=== PATIENT | female | born 1965 ===

== ENCOUNTER 2017-02-08 08:18 | Emergency (ER) | payer OTHER ==
[2017-02-08 08:21] VITALS: BMI 31.4
[2017-02-08 08:22] VITALS: BP 125/81; PULSE 78; RESP 18; TEMP 98.8; O2SAT 99
[2017-02-08] MEDS ORDERED: Sodium Chloride 0.9% 1,000 ML IV STA (08:38)
--- NOTE | 2017-02-08 08:40 | ED PDOC ---
Syncope/Near Syncope/Dizzyness Time Seen by Provider: 02/08/17 08:31 Chief Complaint (Nursing): Dizziness/Lightheaded Chief Complaint (Provider): dizziness History Per: Patient History/Exam Limitations: no limitations Onset/Duration Of Symptoms: Days (x 7) Current Symptoms Are (Timing): Still Present Fall Associated With With Symptoms: No Additional Complaint(s): Nunu Martinez is a 51 year old female, with no previous medical history, who presents to the ED with complaints of dizziness with associated nausea which has been progressively worsening for the past week. Patient denies any vomiting , headache, chest pain, palpitations or abdominal pain. Patient reports symptoms are worse with movement but improve when laying still. PMD: none provided Past Medical History Reviewed: Historical Data, Nursing Documentation, Vital Signs Vital Signs: Last Vital Signs Temp 98.8 F 02/08/17 08:21 Pulse 78 02/08/17 08:21 Resp 18 02/08/17 08:21 BP 125/81 02/08/17 08:21 Pulse Ox 99 02/08/17 08:21 - Medical History PMH: Hypercholesterolemia Denies: Chronic Kidney Disease - Family History Family History: States: Unknown Family Hx - Home Medications Home Medications: Ambulatory Orders Medication Instructions Recorded Meclizine [Meclizine*] 25 mg PO Q8 #15 tab 02/08/17 - Allergies Allergies/Adverse Reactions: Allergies Allergy/AdvReac Type Severity Reaction Status Date / Time No Known Allergies Allergy Verified 04/11/16 11:25 Review of Systems ROS Statement: Except As Marked, All Systems Reviewed And Found Negative Cardiovascular: Negative for: Chest Pain, Palpitations Gastrointestinal: Positive for: Nausea. Negative for: Vomiting, Abdominal Pain Neurological: Positive for: Dizziness. Negative for: Headache Physical Exam - Reviewed Nursing Documentation Reviewed: Yes Vital Signs Reviewed: Yes - Physical Exam Appears: Positive for: Well, Non-toxic, No Acute Distress Head Exam: Positive for: ATRAUMATIC, NORMAL INSPECTION, NORMOCEPHALIC Skin: Positive for: Normal Color, Warm, DRY Eye Exam: Positive for: EOMI, Normal appearance, PERRL ENT: Positive for: Normal ENT Inspection Neck: Positive for: Normal, Painless ROM Cardiovascular/Chest: Positive for: Regular Rate, Rhythm Respiratory: Positive for: CNT, Normal Breath Sounds Gastrointestinal/Abdominal: Positive for: Normal Exam, Bowel Sounds, Soft. Negative for: Tenderness Back: Positive for: Normal Inspection Extremity: Positive for: Normal ROM Neurologic/Psych: Positive for: Alert, Oriented. Negative for: Motor/Sensory Deficits - Laboratory Results Result Diagrams: 02/08/17 09:11 02/08/17 09:11 - ECG O2 Sat by Pulse Oximetry: 99 (RA) Pulse Ox Interpretation: Normal Medical Decision Making Medical Decision Making: Initial Impression: Dizziness Initial Plan: * EKG * labs * urine * antivert * IV NS 1,000 ml at 100 ml/hr * zofran * reevaluation Scribe Attestation: Documented by Lore Ochoa, acting as a scribe for Naeem Fry MD. Provider Scribe Attestation: All medical record entries made by the Scribe were at my direction and personally dictated by me. I have reviewed the chart and agree that the record accurately reflects my personal performance of the history, physical exam, medical decision making, and the department course for this patient. I have also personally directed, reviewed, and agree with the discharge instructions and disposition. Disposition - Clinical Impression Clinical Impression: Vertigo - Patient ED Disposition Is Patient to be Admitted: No Counseled Patient/Family Regarding: Studies Performed, Diagnosis, Need For Followup, Rx Given - Disposition Referrals: [facility] [Outside] Disposition: Routine/Home Disposition Time: 10:05 Condition: FAIR Prescriptions: Meclizine [Meclizine*] 25 mg PO Q8 #15 tab Instructions: Vertigo (ED) Print Language: ROMANIAN
[2017-02-08 09:21] LABS: BASO # 0.1 K/uL (0.0-0.2); BASO % 1.4 % (0.0-2.0); EOS # 0.3 K/uL (0.0-0.7); EOS % 4.7 % (0.0-4.0); HEMATOCRIT 45.4 % (34.0-47.0); LYMPH # 1.8 K/uL (1.0-4.3); MEAN CORPUSCULAR HEMOGLOBIN 29.7 pg (27.0-31.0); MEAN CORPUSCULAR HGB CONC 33.4 g/dL (33.0-37.0); MEAN PLATELET VOLUME 7.8 fl (7.2-11.7); MONO # 0.5 K/uL (0.0-0.8); NEUT # 3.4 K/uL (1.8-7.0); NEUT % 56.9 % (50.0-75.0); NRBC % 0.1 % (0.0-0.0); RED CELL DISTRIBUTION WIDTH 14.2 % (11.5-14.5); WHITE BLOOD COUNT 6.1 K/uL (4.8-10.8)
[2017-02-08 09:33] LABS: ALB/GLOB RATIO 1.4 (1.0-2.1); ALKALINE PHOSPHATASE 71 U/L (38-126); ALT/SGPT 55 U/L (9-52); AST/SGOT 39 U/L (14-36); BILIRUBIN,TOTAL 0.6 mg/dl (0.2-1.3); BLOOD UREA NITROGEN 15 mg/dl (7-17); CALCIUM 9.8 mg/dL (8.4-10.2); CARBON DIOXIDE 28 mmol/L (22-30); CHLORIDE 104 mmol/L (98-107); GFR AFRICAN-AMERICAN > 60; GLUCOSE,RANDOM 104 mg/dL (65-105); POTASSIUM 4.3 MMOL/L (3.6-5.0); SODIUM 141 mmol/l (132-148); TOTAL PROTEIN 7.7 G/DL (6.3-8.2)
--- NOTE | 2017-02-08 11:29 | CARD ---
APPROVED REPORT EKG Measurement Heart [id number] <Conclusion> Normal sinus rhythm Normal ECG
== END 2017-02-08 10:25 | disposition home or self-care (01) ==
LOC: H.ER 08:18
DX: R42 Dizziness and giddiness (principal); E78.00 Pure hypercholesterolemia, unspecified

== ENCOUNTER 2017-10-04 16:40 | Emergency (ER) | payer SELFPAY ==
[2017-10-04 16:41] VITALS: BMI 31.4
[2017-10-04 16:57] VITALS: RESP 18
--- NOTE | 2017-10-04 18:24 | ED PDOC ---
Lower Extremity Pain/Injury Time Seen by Provider: 10/04/17 16:51 Chief Complaint (Nursing): Lower Extremity Problem/Injury History Per: Patient, Lathe Tender History/Exam Limitations: no limitations Onset/Duration Of Symptoms: Days (x 1) Current Symptoms Are (Timing): Still Present Additional Complaint(s): Nunu is a 52 year old female who presents to the emergency department for right knee pain. Patient states she fell while trying to get out of the bathtub in the morning. Patient states she has a "pre-diabetes list" and takes metformin 500 mg. Denies taking medications for pain. PMD: Keny Parker Past Medical History Reviewed: Historical Data, Nursing Documentation, Vital Signs Vital Signs: Last Vital Signs Temp 100.1 F H 10/04/17 16:52 Pulse 99 H 10/04/17 16:52 Resp 18 10/04/17 16:52 BP 146/87 10/04/17 16:52 Pulse Ox 100 10/04/17 16:52 - Medical History PMH: Hypercholesterolemia Denies: Chronic Kidney Disease - Surgical History Surgical History: No Surg Hx - Family History Family History: States: Unknown Family Hx - Social History Current smoker - smoking cessation education provided: No Alcohol: None Drugs: Denies - Home Medications Home Medications: Ambulatory Orders Medication Instructions Recorded Meclizine [Meclizine*] 25 mg PO Q8 #15 tab 02/08/17 Ibuprofen [Motrin Tab] 800 mg PO Q6H PRN #20 tab 10/04/17 - Allergies Allergies/Adverse Reactions: Allergies Allergy/AdvReac Type Severity Reaction Status Date / Time No Known Allergies Allergy Verified 04/11/16 11:25 Review of Systems ROS Statement: Except As Marked, All Systems Reviewed And Found Negative Musculoskeletal: Positive for: Other (Right Knee Pain) Physical Exam - Reviewed Nursing Documentation Reviewed: Yes Vital Signs Reviewed: Yes - Physical Exam Appears: Positive for: Well, Non-toxic Head Exam: Positive for: ATRAUMATIC, NORMAL INSPECTION, NORMOCEPHALIC Skin: Positive for: Normal Color, Warm, Dry Eye Exam: Positive for: Normal appearance ENT: Positive for: Normal ENT Inspection Neck: Positive for: Normal Cardiovascular/Chest: Positive for: Regular Rate, Rhythm Respiratory: Negative for: Accessory Muscle Use, Respiratory Distress Extremity: Positive for: Tenderness (Generlized), Deformity (Bony). Negative for: Pedal Edema, Swelling Neurologic/Psych: Positive for: Alert, Oriented - ECG O2 Sat by Pulse Oximetry: 100 (RA) Pulse Ox Interpretation: Normal Medical Decision Making Medical Decision Making: Time: 18:19 Plan: - Right Knee X-Ray - Motrin Tab Scribe Attestation: Documented by Jacobo Kiser, acting as a scribe for Drea Santizo PA-C Provider Scribe Attestation: All medical record entries made by the Scribe were at my direction and personally dictated by me. I have reviewed the chart and agree that the record accurately reflects my personal performance of the history, physical exam, medical decision making, and the department course for this patient. I have also personally directed, reviewed, and agree with the discharge instructions and disposition. Disposition - Clinical Impression Clinical Impression: Knee pain - Patient ED Disposition Is Patient to be Admitted: No Counseled Patient/Family Regarding: Diagnosis, Need For Followup, Rx Given - Disposition Referrals: [facility] [Outside] Disposition: Routine/Home Disposition Time: 20:09 Condition: GOOD Prescriptions: Ibuprofen [Motrin Tab] 800 mg PO Q6H PRN #20 tab PRN Reason: Pain Instructions: Knee Pain (ED) Forms: [employer] (Welsh), [facility] ED School/Work Excuse Print Language: POLISH
[2017-10-04 20:18] VITALS: BP 130/78; PULSE 78; TEMP 98.1; O2SAT 99
--- NOTE | 2017-10-05 09:41 | RAD ---
PROCEDURE: Right Knee Radiographs. HISTORY: knee pain, twisted COMPARISON: None. FINDINGS: BONES: Three views of the right knee were performed for pain and trauma. Mild degenerative changes are seen. No fracture is noted. No tibial plateau depression is seen. No focal osteochondral defect is noted. No joint effusion is seen. No loose body is noted. Minimal prepatellar edema is noted. No periosteal reaction is seen. There is minor lateral patellar tilting seen on the sunrise view. JOINTS: See above JOINT EFFUSION: See above OTHER FINDINGS: None. IMPRESSION: No fracture.
== END 2017-10-04 20:18 | disposition home or self-care (01) ==
LOC: H.ER 16:40
DX: M25.561 Pain in right knee (principal); W19.XXXA Unspecified fall, initial encounter; Y92.89 Other specified places as the place of occurrence of the external cause; E78.00 Pure hypercholesterolemia, unspecified

== ENCOUNTER 2018-03-31 08:16 | Inpatient (IN) | payer SELFPAY ==
[2018-03-31 08:23] VITALS: BMI 34.7
--- NOTE | 2018-03-31 09:25 | ED PDOC ---
HPI: Abdomen Time Seen by Provider: 03/31/18 09:06 Chief Complaint (Nursing): Abdominal Pain Chief Complaint (Provider): Abdominal Painn History Per: Patient History/Exam Limitations: no limitations Onset/Duration Of Symptoms: Days (1 week) Current Symptoms Are (Timing): Still Present Location Of Pain/Discomfort: LLQ Quality Of Discomfort: "Pain" Associated Symptoms: Chills, Nausea. denies: Fever, Vomiting, Diarrhea Additional Complaint(s): 53 year old female with a PMHx of diabetes mellitus presents to the ED complaining of left lower quadrant abdominal pain onset for 1 week. Reports the abdominal pain is associated with nausea. Patient had chills but no fever last night. Denies bloody stool, vomiting or diarrhea. PMD: No Family Provider Past Medical History Reviewed: Historical Data, Nursing Documentation, Vital Signs Vital Signs: Last Vital Signs Temp 98.5 F 03/31/18 08:23 Pulse 91 H 03/31/18 08:23 Resp 20 03/31/18 08:23 BP 115/81 03/31/18 08:23 Pulse Ox 97 03/31/18 09:26 - Medical History PMH: Diabetes, Hypercholesterolemia Denies: Chronic Kidney Disease - Family History Family History: States: Unknown Family Hx - Allergies Allergies/Adverse Reactions: Allergies Allergy/AdvReac Type Severity Reaction Status Date / Time No Known Allergies Allergy Verified 03/31/18 08:38 Review of Systems ROS Statement: Except As Marked, All Systems Reviewed And Found Negative Constitutional: Positive for: Chills. Negative for: Fever Gastrointestinal: Positive for: Nausea, Abdominal Pain (LLQ). Negative for: Vomiting, Diarrhea, Other (bloody stool) Physical Exam - Reviewed Nursing Documentation Reviewed: Yes Vital Signs Reviewed: Yes - Physical Exam Appears: Positive for: Non-toxic, No Acute Distress Head Exam: Positive for: ATRAUMATIC, NORMAL INSPECTION, NORMOCEPHALIC Skin: Positive for: Normal Color, Warm, Dry Cardiovascular/Chest: Positive for: Regular Rate, Rhythm. Negative for: Murmur Respiratory: Positive for: Normal Breath Sounds. Negative for: Decreased Breath Sounds, Wheezing, Respiratory Distress Gastrointestinal/Abdominal: Positive for: Tenderness (all 4 quadrant but greater on LLQ). Negative for: Guarding, Rebound Back: Positive for: Normal Inspection. Negative for: L CVA Tenderness, R CVA Tenderness Extremity: Positive for: Normal ROM. Negative for: Tenderness, Pedal Edema, Deformity Neurologic/Psych: Positive for: Alert, Oriented (x3) - Laboratory Results Result Diagrams: 03/31/18 09:55 03/31/18 09:55 - ECG O2 Sat by Pulse Oximetry: 97 (RA) Pulse Ox Interpretation: Normal Medical Decision Making Medical Decision Making: Time: 913 Initial Impression: left lower quadrant pain Initial Plan: --VBG Shock Panel --Ad & Pelvis IV Contrast Only CT --CMP --ED Urine dipstick --CBC w/ Differential --Blood Culture --Urine Culture --Reevaluation Scribe Attestation: Documented by Carolina Cameron, acting as a scribe for Naeem Fry MD Provider Scribe Attestation: All medical record entries made by the Scribe were at my direction and personally dictated by me. I have reviewed the chart and agree that the record accurately reflects my personal performance of the history, physical exam, medical decision making, and the department course for this patient. I have also personally directed, reviewed, and agree with the discharge instructions and disposition. Disposition - Clinical Impression Clinical Impression: Diverticulitis - Patient ED Disposition Is Patient to be Admitted: Yes - Disposition Disposition Time: 15:44 Condition: FAIR Forms: [employer] (Citizen [place] - Pt Status Changed To: Hospital Disposition Of: Observation - POA Present On Arrival: None
[2018-03-31 10:06] LABS: BASO # 0.1 K/uL (0.0-0.2); BASO % 0.6 % (0.0-2.0); EOS # 0.5 K/uL (0.0-0.7); EOS % 4.4 % (0.0-4.0); LYMPH # 2.4 K/uL (1.0-4.3); LYMPH % 20.6 % (20.0-40.0); MEAN CORPUSCULAR HEMOGLOBIN 28.2 pg (27.0-31.0); MEAN CORPUSCULAR HGB CONC 32.5 g/dL (33.0-37.0); MEAN PLATELET VOLUME 8.4 fl (7.2-11.7); MONO # 0.8 K/uL (0.0-0.8); MONO % 6.7 % (0.0-10.0); NEUT # 7.7 K/uL (1.8-7.0); NEUT % 67.7 % (50.0-75.0); NRBC % 0.1 % (0.0-0.0); RBC 4.95 Mil/uL (3.80-5.20); RED CELL DISTRIBUTION WIDTH 14.2 % (11.5-14.5); WHITE BLOOD COUNT 11.5 K/uL (4.8-10.8)
[2018-03-31 10:12] LABS: CALCIUM 9.7 mg/dL (8.4-10.2); GFR AFRICAN-AMERICAN > 60; GFR NON-AFRICAN AMERICAN > 60
[2018-03-31 10:13] LABS: ALB/GLOB RATIO 1.1 (1.0-2.1); ALBUMIN 4.4 g/dL (3.5-5.0); ALT/SGPT 32 U/L (9-52); AST/SGOT 45 U/L (14-36); BLOOD UREA NITROGEN 18 mg/dl (7-17)
[2018-03-31] MEDS ORDERED: Iohexol 300 100 ML IJ ONE (10:22)
[2018-03-31] MEDS ORDERED: Sodium Chloride 0.9% 50 ML IV ONE (10:23)
[2018-03-31] MEDS ORDERED: Iohexol 240 (50 ml) PO ONE (11:11)
[2018-03-31 11:22] LABS: VENOUS BLOOD GAS BASE EXCESS 2.5 mmol/L (0.0-2.0); VENOUS BLOOD GAS PCO2 37 mmHg (40-60); VENOUS BLOOD GAS PO2 55 mm/Hg (30-55); VENOUS BLOOD PH 7.46 (7.32-7.43)
[2018-03-31] MEDS ORDERED: metroNIDAZOLE 500mg/100ml NS 100 ML IVPB STA (15:41)
[2018-03-31] MEDS ORDERED: Ciprofloxacin 400mg/200ml D5W 400 MG/200 ML BAG IVPB STA (15:41)
[2018-03-31] MEDS ORDERED: Sodium Chloride 0.9% 1,000 ML IV STA (15:45)
[2018-03-31] MEDS ORDERED: Glucagon Recombinant 1 mg Inj IM PRN (16:13)
[2018-03-31] MEDS ORDERED: Dextrose 50% SYRINGE Inj (50 ml) IV PRN (16:13)
--- NOTE | 2018-03-31 16:13 | CP.PCM.HP ---
History of Present Illness - History of Present Illness History of Present Illness: "donavan been having nausea and stomach pain for 6 days" 53 y/o female, with hx of preDM, HLD, morbid obesity, presents for evaluation of worsening stomach pain. Pain started 6 days ago without a triggering event. She reports it was 3/10 and mild nausea but as the week progressed it worsening. She had loss of appetite and 8/10 abdominal pain. Pain is diffuse, without a specific area, nonradiating, alleviated with rest, exacerbated with activity that increases intrabdominal pressure. She reports a similar episode in 2014 when she admitted for diverticulitis. She reports subjective fevers but denies any diarrhea. She had 1 episode of NBNB emesis yesterday that was primarily stomach contents. She attempted to take OTC pain meds (tylenol/advil) without improvement so she came to the ED for evaluation. Denies chills, CP/SOB/ Palpitations/CAMACHO, D/C, urinary symptoms, back pain, sick contacts, changes in diet. ROS: 12 systems reviewed, as per HPI PMD: [facility] last visit 02/2018 PMHx: pre-diabetes, HLD, obesity Meds: Metformin 500mg BID, Flonase PsurgHx: x1 CATERERS HELPER: irregular, perimenapausal ALL: NKDA FamilyHx: mother breast CA, father DM SocialHx: denies etoh, drugs, tobacco abuse Next of kin: friend Flor (as per demographics) Code Status: full code ED course: vitals: stable CBC: mild leukocytosis CMP: wnl Abd/pelvic CT: official report pending Tx: IV fluids, Cipro/flagyl, NPO admitted to med/surg Present on Admission - Present on Admission Any Indicators Present on Admission: No History of DVT/PE: No History of Uncontrolled Diabetes: No Urinary Catheter: No Decubitus Ulcer Present: No Review of Systems - Review of Systems All systems: reviewed and no additional remarkable complaints except Past Patient History - Infectious Disease Hx of Infectious Diseases: None - Past Medical History & Family History Past Medical History?: No Past Family History: Reviewed and not pertinent - Past Social History Smoking Status: Never Smoked Chewing Tobacco Use: No Cigar Use: No Alcohol: None Drugs: Denies Home Situation {Lives}: Alone - CARDIAC Hx Hypercholesterolemia: Yes - PULMONARY Hx Respiratory Disorders: No - NEUROLOGICAL Hx Neurological Disorder: No - HEENT Hx HEENT Problems: No - RENAL Hx Chronic Kidney Disease: No - ENDOCRINE/METABOLIC Hx Endocrine Disorders: Yes Hx Diabetes Mellitus Type 2: Yes - HEMATOLOGICAL/ONCOLOGICAL Hx Blood Disorders: No - INTEGUMENTARY Hx Dermatological Problems: No - MUSCULOSKELETAL/RHEUMATOLOGICAL Hx Musculoskeletal Disorders: No - GASTROINTESTINAL Hx Gastrointestinal Disorders: No - GENITOURINARY/GYNECOLOGICAL Hx Genitourinary Disorders: No - PSYCHIATRIC Hx Psychophysiologic Disorder: No Hx Emotional Abuse: No Hx Physical Abuse: No Hx Substance Use: No - SURGICAL HISTORY Hx Surgeries: Yes Hx Section: Yes - ANESTHESIA Hx Anesthesia: Yes Hx Anesthesia Reactions: No Hx Malignant Hyperthermia: No Meds Allergies/Adverse Reactions: Allergies Allergy/AdvReac Type Severity Reaction Status Date / Time No Known Allergies Allergy Verified 03/31/18 08:38 Physical Exam - Constitutional Appears: Well, Non-toxic, No Acute Distress - Head Exam Head Exam: ATRAUMATIC, NORMAL INSPECTION, NORMOCEPHALIC - Eye Exam Eye Exam: EOMI, Normal appearance, PERRL. absent: Conjunctival injection, Scleral icterus Pupil Exam: NORMAL ACCOMODATION, PERRL - ENT Exam ENT Exam: Mucous Membranes Moist, Normal Exam - Neck Exam Neck exam: Positive for: Normal Inspection - Respiratory Exam Respiratory Exam: Clear to Auscultation Bilateral, NORMAL BREATHING PATTERN. absent: Accessory Muscle Use, Decreased Breath Sounds, Rhonchi, Wheezes, Respiratory Distress - Cardiovascular Exam Cardiovascular Exam: REGULAR RHYTHM, RRR, +S1, +S2. absent: Tachycardia, JVD, Systolic Murmur - GI/Abdominal Exam GI & Abdominal Exam: Normal Bowel Sounds, Soft, Tenderness (diffuse, mild, more prounounced in LLQ ). absent: Distended, Firm, Guarding, Organomegaly, Rebound , Rigid - Extremities Exam Extremities exam: Positive for: normal capillary refill, normal inspection, pedal pulses present. Negative for: calf tenderness - Back Exam Back exam: absent: CVA tenderness (L), CVA tenderness (R) - Neurological Exam Neurological exam: Alert, CN II-XII Intact, Normal Gait, Oriented x3, Reflexes Normal - Psychiatric Exam Psychiatric exam: Normal Affect, Normal Mood - Skin Skin Exam: Dry, Warm Results - Vital Signs Recent Vital Signs: Last Vital Signs Temp 98.5 F 03/31/18 08:23 Pulse 91 H 03/31/18 08:23 Resp 20 03/31/18 08:23 BP 115/81 03/31/18 08:23 Pulse Ox 97 03/31/18 15:44 - Labs Result Diagrams: 03/31/18 09:55 03/31/18 09:55 Labs: Laboratory Results - last 24 hr 03/31/18 03/31/18 03/31/18 09:55 09:55 11:15 WBC 11.5 H RBC 4.95 Hgb 14.0 Hct 43.1 MCV 87.0 D MCH 28.2 MCHC 32.5 L RDW 14.2 Plt Count 359 MPV 8.4 Neut % (Auto) 67.7 Lymph % (Auto) 20.6 Sunflower % (Auto) 6.7 Eos % (Auto) 4.4 H Baso % (Auto) 0.6 Neut # (Auto) 7.7 H Lymph # (Auto) 2.4 Sunflower # (Auto) 0.8 Eos # (Auto) 0.5 Baso # (Auto) 0.1 pO2 55 VBG pH 7.46 H VBG pCO2 37 L VBG HCO3 26.7 VBG Total CO2 27.4 VBG O2 Sat (Calc) 95.3 H VBG Base Excess 2.5 H VBG Potassium 4.6 Glucose 102 Lactate 1.7 FiO2 21.0 Sodium 137 133.0 Potassium 4.8 Chloride 102 104.0 Carbon Dioxide 24 Anion Gap 16 BUN 18 H Creatinine 0.6 L Est GFR ( Amer) > 60 Est GFR (Non-Af Amer) > 60 Random Glucose 96 Calcium 9.7 Total Bilirubin 1.0 AST 45 H D ALT 32 Alkaline Phosphatase 87 Total Protein 8.5 H Albumin 4.4 Globulin 4.1 H Albumin/Globulin Ratio 1.1 Venous Blood Potassium 4.6 Assessment & Plan - Assessment and Plan (Free Text) Assessment: 53 y/o female with hx of pre-diabetes, HLD, admitted for acute diverticulitis Plan: 1) Acute Diverticulitis -NPO -Cipro/flagyl as ordered -IV fluids with LR @ 100mls/hr -Zofran PRN nausea -pain control as ordered -monitor vitals -follow up AM CBC/BMP 2) Leukocytosis -likely 2/2 to diverticulitis -treatment as above -follow up AM labs 3) DVT Ppx -ambulation -scds -lovenox 40mg SC QD 4) Code Status -full code
--- NOTE | 2018-03-31 16:24 | CT ---
PROCEDURE: CT Abdomen and Pelvis with contrast HISTORY: abd pain r/o divertics COMPARISON: Abdomen and pelvis CT examination 08/27/2015. TECHNIQUE: Contrast dose: None Radiation dose: Total exam DLP = 1368.85 mGy-cm. This CT exam was performed using one or more of the following dose reduction techniques: Automated exposure control, adjustment of the mA and/or kV according to patient size, and/or use of iterative reconstruction technique. FINDINGS: LOWER THORAX: Stable benign subpleural nodule remains 4 mm at the right lower lobe laterally, image 14 series 5. LIVER: Unremarkable. No gross lesion or ductal dilatation. GALLBLADDER AND BILE DUCTS: Unremarkable. PANCREAS: Unremarkable. No gross lesion or ductal dilatation. SPLEEN: Unremarkable. ADRENALS: Unremarkable. No mass. KIDNEYS AND URETERS: Unremarkable. No hydronephrosis. No solid mass. VASCULATURE: Unremarkable. No aortic aneurysm. BOWEL: Extensive sigmoid diverticular changes are markedly increased in the interval with mural thickening and local pericolic reaction compatible with diverticulitis. No abscess or free intra peritoneal gas though occasional loculated extraluminal gas is difficult to completely exclude and differentiate from diverticula. No ascites. Remainder of the colon is obscured by a mild retention of retained stool but is otherwise nonfocal. No bowel obstruction and opacified distal small bowel appears unremarkable grossly. Stomach is collapsed and poorly evaluated as result. Extensive sigmoid diverticular changes are reiterated, markedly APPENDIX: Normal appendix. PERITONEUM: Pericolic reaction as discussed above and otherwise unremarkable. LYMPH NODES: Unremarkable. No enlarged lymph nodes. BLADDER: Unremarkable. REPRODUCTIVE: Unremarkable. BONES: No acute fracture. OTHER FINDINGS: None. IMPRESSION: 1. Diverticulitis affects mid sigmoid colon without abscess or free intrarenal gas although loculated extraluminal gas is not completely excluded. Local pericolic reaction appears moderate in severity. No ascites. 2. Benign subpleural nodule right lower lobe. 3. Further evaluation of the remaining abdominal and pelvic viscera is limited due lack of intravenous contrast agents with no suspicious acute findings appreciated in the exam outside of impression 1.
[2018-03-31] MEDS ORDERED: Insulin Lispro (humaLOG) 100 Units/ml Inj SC SCH (16:30)
[2018-03-31] MEDS ORDERED: metroNIDAZOLE 500mg/100ml NS 100 ML IVPB SCH (17:00)
[2018-03-31] MEDS: Lactated Ringer's 1,000 ML IV SCH (18:32)
[2018-03-31] MEDS ORDERED: Pneumococcal 23-Valent Vaccine IM ONE (19:45)
[2018-03-31] MEDS: Ciprofloxacin 400mg/200ml D5W 400 MG/200 ML BAG IVPB SCH (21:11)
[2018-04-01] MEDS: Lactated Ringer's 1,000 ML IV SCH ×5 (03:15→23:56)
[2018-04-01 06:19] LABS: HEMOGLOBIN 13.1 g/dL (12.0-16.0); MEAN CELL VOLUME 86.5 fl (81.0-99.0); MEAN CORPUSCULAR HGB CONC 33.5 g/dL (33.0-37.0); RBC 4.52 Mil/uL (3.80-5.20); RED CELL DISTRIBUTION WIDTH 14.1 % (11.5-14.5)
[2018-04-01 06:31] LABS: BLOOD UREA NITROGEN 18 mg/dl (7-17); CALCIUM 9.8 mg/dL (8.4-10.2); GFR AFRICAN-AMERICAN > 60; GFR NON-AFRICAN AMERICAN > 60
[2018-04-01] MEDS: Ciprofloxacin 400mg/200ml D5W 400 MG/200 ML BAG IVPB SCH ×2 (08:35→20:44)
--- NOTE | 2018-04-01 14:36 | CP.PCM.PN ---
Subjective - Date & Time of Evaluation Date of Evaluation: 04/01/18 Time of Evaluation: 07:00 - Subjective Subjective: pt seen and evaluated at bedside this morning. No acute events overnight. Nursing notes reviewed. Afebrile. WBC normal. Pt attempted to tolerate PO intake but complained of abdominal pain and nausea. Abdominal pain controlled with pain meds. Normal urination. No diarrhea. No appetite. OOB w/o dizziness. No other complaints. Objective - Vital Signs/Intake and Output Vital Signs (last 24 hours): Temp Pulse Resp BP Pulse Ox 97.3 F L 79 19 101/68 98 04/01/18 08:18 04/01/18 08:18 04/01/18 08:18 04/01/18 08:18 04/01/18 08:18 - Medications Medications: Current Medications Ciprofloxacin (Cipro 400mg/200ml Dsw) 400 mg in 200 mls @ 200 mls/hr IVPB Q12 JAREN PRN Reason: Protocol Last Admin: 04/01/18 08:35 Dose: 200 mls/hr Lactated Ringer's (Lactated Ringer's) 1,000 mls @ 100 mls/hr IV .Q10H [facility] Last Admin: 04/01/18 12:42 Dose: Not Given Ketorolac Tromethamine (Toradol) 15 mg IVP Q6 PRN PRN Reason: Pain, moderate (4-7) Last Admin: 04/01/18 04:47 Dose: 15 mg Metronidazole (Flagyl) 500 mg PO Q8 [facility] Last Admin: 04/01/18 08:35 Dose: 500 mg Ondansetron HCl (Zofran Inj) 4 mg IVP Q6 PRN PRN Reason: Nausea/Vomiting - Labs Labs: 04/01/18 06:00 04/01/18 06:00 - Constitutional Appears: Non-toxic, No Acute Distress - Head Exam Head Exam: ATRAUMATIC, NORMOCEPHALIC - Eye Exam Eye Exam: EOMI. absent: Scleral icterus Pupil Exam: PERRL - ENT Exam ENT Exam: Mucous Membranes Moist - Neck Exam Neck Exam: Full ROM - Respiratory Exam Respiratory Exam: Clear to Ausculation Bilateral, NORMAL BREATHING PATTERN. absent: Rales, Rhonchi, Wheezes - Cardiovascular Exam Cardiovascular Exam: REGULAR RHYTHM, RRR, +S1, +S2. absent: Tachycardia, JVD, Murmur - GI/Abdominal Exam GI & Abdominal Exam: Soft, Tenderness (mild diffuse tenderness), Hypoactive Bowel Sounds. absent: Distended, Firm, Guarding, Rigid, Rebound Additional comments: truncal obesity - Extremities Exam Extremities Exam: Full ROM, Normal Capillary Refill, Normal Inspection. absent : Pedal Edema - Back Exam Back Exam: NORMAL INSPECTION. absent: CVA tenderness (L), CVA tenderness (R) - Neurological Exam Neurological Exam: Alert, Awake, Normal Gait, Oriented x3 - Psychiatric Exam Psychiatric exam: Normal Affect, Normal Mood - Skin Skin Exam: Dry, Normal Color, Warm Assessment and Plan - Assessment and Plan (Free Text) Assessment: 53 y/o female with hx of pre-diabetes, HLD, admitted for acute diverticulitis Plan: 1) Acute Diverticulitis -improving -has not tolerated diet yet, attempt to advance as tolerated -Cipro/flagyl as ordered -IV fluids with LR @ 100mls/hr -Zofran PRN nausea -pain control as ordered -monitor vitals -follow up AM CBC/BMP 2) Leukocytosis -resolved -follow up AM labs 3) DVT Ppx -ambulation -scds -lovenox 40mg SC QD 4) Code Status -full code
[2018-04-01] MEDS: Enoxaparin 40 mg Syringe SC SCH (20:44)
[2018-04-02 00:05] VITALS: RESP 19
[2018-04-02 06:07] LABS: HEMOGLOBIN 13.2 g/dL (12.0-16.0); MEAN CELL VOLUME 87.4 fl (81.0-99.0); MEAN CORPUSCULAR HGB CONC 33.2 g/dL (33.0-37.0); RBC 4.57 Mil/uL (3.80-5.20); RED CELL DISTRIBUTION WIDTH 14.7 % (11.5-14.5); WHITE BLOOD COUNT 5.7 K/uL (4.8-10.8)
[2018-04-02 06:46] LABS: BLOOD UREA NITROGEN 15 mg/dl (7-17); GFR AFRICAN-AMERICAN > 60; GFR NON-AFRICAN AMERICAN > 60
[2018-04-02 08:04] VITALS: BP 127/81; PULSE 81; TEMP 97.9; O2SAT 99
[2018-04-02] MEDS: Lactated Ringer's 1,000 ML IV SCH (08:08)
[2018-04-02] MEDS: Ciprofloxacin 400mg/200ml D5W 400 MG/200 ML BAG IVPB SCH (08:11)
[2018-04-02] MEDS: Enoxaparin 40 mg Syringe SC SCH (08:11)
--- NOTE | 2018-04-02 12:57 | CP.PCM.DIS ---
Provider - Provider Date of Admission: 04/01/18 15:34 Attending physician: Janene Josue MD Time Spent in preparation of Discharge (in minutes): 35 Diagnosis - Discharge Diagnosis (1) Diverticulitis Status: Acute Hospital Course - Lab Results Lab Results: Micro Results 03/31/18 11:00 Blood Blood Culture - Preliminary NO GROWTH AFTER 48 HOURS 03/31/18 10:10 Urine Urine Culture - Final No Growth (<1,000 CFU/ML) Most Recent Lab Values WBC 5.7 K/uL (4.8-10.8) 04/02/18 05:15 RBC 4.57 Mil/uL (3.80-5.20) 04/02/18 05:15 Hgb 13.2 g/dL (12.0-16.0) 04/02/18 05:15 Hct 39.9 % (34.0-47.0) 04/02/18 05:15 MCV 87.4 fl (81.0-99.0) 04/02/18 05:15 MCH 29.0 pg (27.0-31.0) 04/02/18 05:15 MCHC 33.2 g/dL (33.0-37.0) 04/02/18 05:15 RDW 14.7 % (11.5-14.5) H 04/02/18 05:15 Plt Count 349 K/uL (130-400) 04/02/18 05:15 MPV 8.4 fl (7.2-11.7) 03/31/18 09:55 Neut % (Auto) 67.7 % (50.0-75.0) 03/31/18 09:55 Lymph % (Auto) 20.6 % (20.0-40.0) 03/31/18 09:55 [place] % (Auto) 6.7 % (0.0-10.0) 03/31/18 09:55 Eos % (Auto) 4.4 % (0.0-4.0) H 03/31/18 09:55 Baso % (Auto) 0.6 % (0.0-2.0) 03/31/18 09:55 Neut # (Auto) 7.7 K/uL (1.8-7.0) H 03/31/18 09:55 Lymph # (Auto) 2.4 K/uL (1.0-4.3) 03/31/18 09:55 [place] # (Auto) 0.8 K/uL (0.0-0.8) 03/31/18 09:55 Eos # (Auto) 0.5 K/uL (0.0-0.7) 03/31/18 09:55 Baso # (Auto) 0.1 K/uL (0.0-0.2) 03/31/18 09:55 pO2 55 mm/Hg (30-55) 03/31/18 11:15 VBG pH 7.46 (7.32-7.43) H 03/31/18 11:15 VBG pCO2 37 mmHg (40-60) L 03/31/18 11:15 VBG HCO3 26.7 mmol/L 03/31/18 11:15 VBG Total CO2 27.4 mmol/L (22-28) 03/31/18 11:15 VBG O2 Sat (Calc) 95.3 % (40-65) H 03/31/18 11:15 VBG Base Excess 2.5 mmol/L (0.0-2.0) H 03/31/18 11:15 VBG Potassium 4.6 mmol/L (3.6-5.2) 03/31/18 11:15 Sodium 133.0 mmol/L (132-148) 03/31/18 11:15 Chloride 104.0 mmol/L (98-107) 03/31/18 11:15 Glucose 102 mg/dL (65-105) 03/31/18 11:15 Lactate 1.7 mmol/L (0.7-2.1) 03/31/18 11:15 FiO2 21.0 % 03/31/18 11:15 Sodium 142 mmol/l (132-148) 04/02/18 05:15 Potassium 4.6 MMOL/L (3.6-5.0) 04/02/18 05:15 Chloride 106 mmol/L (98-107) 04/02/18 05:15 Carbon Dioxide 30 mmol/L (22-30) 04/02/18 05:15 Anion Gap 11 (10-20) 04/02/18 05:15 BUN 15 mg/dl (7-17) 04/02/18 05:15 Creatinine 0.7 mg/dl (0.7-1.2) 04/02/18 05:15 Est GFR ( Amer) > 60 04/02/18 05:15 Est GFR (Non-Af Amer) > 60 04/02/18 05:15 Random Glucose 112 mg/dL (65-105) H 04/02/18 05:15 Calcium 10.0 mg/dL (8.4-10.2) 04/02/18 05:15 Total Bilirubin 1.0 mg/dl (0.2-1.3) 03/31/18 09:55 AST 45 U/L (14-36) H D 03/31/18 09:55 ALT 32 U/L (9-52) 03/31/18 09:55 Alkaline Phosphatase 87 U/L (38-126) 03/31/18 09:55 Total Protein 8.5 G/DL (6.3-8.2) H 03/31/18 09:55 Albumin 4.4 g/dL (3.5-5.0) 03/31/18 09:55 Globulin 4.1 gm/dL (2.2-3.9) H 03/31/18 09:55 Albumin/Globulin Ratio 1.1 (1.0-2.1) 03/31/18 09:55 Venous Blood Potassium 4.6 mmol/L (3.6-5.2) 03/31/18 11:15 - Hospital Course Hospital Course: 53 y/o female with hx of pre-diabetes, HLD was admitted for acute diverticulitis. Pt was started on IV Cipro/flagyl as well as pain control. She was made NPO. She tolerated the medications without issue. She was hydrated. Diet was advanced. She remained afebrile, leukocytosis resolved. After an unremarkable hospital course she was discharged in stable condition. Meds on discharge: Ciprofloxacin 500mg PO BID x 8 days Flagyl 500mg PO TID x8 days Discharge Exam - Head Exam Head Exam: ATRAUMATIC, NORMOCEPHALIC - Eye Exam Eye Exam: EOMI, Normal appearance Pupil Exam: NORMAL ACCOMODATION - ENT Exam ENT Exam: Mucous Membranes Moist - Respiratory Exam Respiratory Exam: Clear to PA & Lateral, NORMAL BREATHING PATTERN, UNREMARKABLE - Cardiovascular Exam Cardiovascular Exam: REGULAR RHYTHM, +S1, +S2. absent: Tachycardia - GI/Abdominal Exam GI & Abdominal Exam: Normal Bowel Sounds, Soft, Unremarkable. absent: Distended , Firm, Guarding, Mass, Rebound, Rigid, Tenderness - Extremities Exam Extremities exam: full ROM, normal capillary refill, normal inspection, pedal pulses present - Neurological Exam Neurological exam: Alert, CN II-XII Intact, Normal Gait, Oriented x3, Reflexes Normal - Psychiatric Exam Psychiatric exam: Normal Affect, Normal Mood - Skin Skin Exam: Dry, Intact, Normal Color, Warm Discharge Plan - Follow Up Plan Condition: FAIR Disposition: HOME/ ROUTINE Instructions: Ciprofloxacin (Systemic), Low Fiber Diet, Metronidazole (Systemic ), Diverticulitis (DC) Additional Instructions: hacer shahriar con orosco doctor primario dentro 1 semana Referrals: [facility] [place] [Outside] Keny Parker MD [Family Provider] -
[2018-04-02] MEDS ORDERED: SOY ISOFLA PO SCH (22:00)
[2018-04-02] MEDS ORDERED: BLK COHOSH PO SCH (22:00)
[2018-04-02] MEDS ORDERED: MAG BARK PO SCH (22:00)
== END 2018-04-02 13:46 | disposition home or self-care (01) | DRG 183 ==
LOC: H.ER 08:16 → H.ERHOLD 15:42 → H.MEDSURG1 17:13 → OBSVTOIN 04-01 15:34
PROVIDERS: ADMIT Family Medicine Geriatric Medicine; ATTEND Family Medicine Geriatric Medicine
PROC: 3E0234Z Introduction of Serum, Toxoid and Vaccine into Muscle, Percutaneous Approach (ICD-10-PCS; principal; 2018-03-31)
DX: K57.92 Diverticulitis of intestine, part unspecified, without perforation or abscess without bleeding (principal); D72.828 Other elevated white blood cell count; E66.01 Morbid (severe) obesity due to excess calories; Z68.34 Body mass index [BMI] 34.0-34.9, adult; R73.03 Prediabetes; E78.00 Pure hypercholesterolemia, unspecified; E78.5 Hyperlipidemia, unspecified; Z23 Encounter for immunization; Z98.891 History of uterine scar from previous surgery